=== PATIENT | female | born 1945 | race Caucasian/White ===

== ENCOUNTER → 2023-06-01 09:22 | Outpatient (CLI) | payer OTHER, SELFPAY ==
--- NOTE | ~2023-06-01 | XR_ITS ---
EXAMINATION: XR lumbar spine 2-3V DATE: 06/01/2023 09:47 INDICATION: Lumbago sciatica, left-sided. TECHNIQUE: 3 views of lumbar spine were obtained. COMPARISON: None. FINDINGS: There is 3 mm anterolisthesis of L4 on L5. Vertebral body heights are normal. There is adrián rely decreased disc height from L1-L2 through L3-L4 and mildly decreased disc height at L5-S1. There is multilevel facet joint osteoarthritis, severe in lower lumbar spine. IMPRESSION: 1. Severe lumbar spondylosis. Reviewed, dictated and finalized at location A.
== END ==
PROVIDERS: PCP Family Medicine Adolescent Medicine; Visit Provider Nurse Practitioner Family
DX: M54.42 Lumbago with sciatica, left side (principal); M47.896 Other spondylosis, lumbar region
CPT/HCPCS: 72100

== ENCOUNTER → 2023-06-23 09:20 | Outpatient (CLI) | payer OTHER, SELFPAY ==
--- NOTE | ~2023-06-23 | XR_ITS ---
EXAM: XR_CERV2-3V_CR DATE: 06/23/2023 10:03 HISTORY: R20.0 - Anesthesia of skin . COMPARISON: None available. FINDINGS: Craniocervical association and atlantoaxial joint are aligned. No prevertebral soft tissue swelling. 3 mm anterolisthesis at C2-3. 3 mm anterolisthesis at C4-5. 2 mm retrolisthesis at C5-6. 1 mm retrolisthesis at C6-7. Vertebral body heights are maintained. Multilevel moderate disc space bulmaro rowing and marginal osteophytosis in the lower cervical spine. Multilevel moderate facet sclerosis an d hypertrophy. IMPRESSION: Multilevel grade 1 listheses. Multilevel moderate degenerative disc disease and facet art hropathy. Reviewed, dictated and finalized at location K. IMPRESSION: Multilevel grade 1 listheses. Multilevel moderate degenerative disc disease and facet arthropathy.
== END ==
PROVIDERS: PCP Family Medicine Adolescent Medicine; Visit Provider Nurse Practitioner Family
DX: R20.0 Anesthesia of skin (principal); M50.30 Other cervical disc degeneration, unspecified cervical region
CPT/HCPCS: 72040

== ENCOUNTER → 2023-07-02 14:26 | Outpatient (CLI) | payer OTHER, SELFPAY ==
--- NOTE | ~2023-07-02 | MR_ITS ---
EXAMINATION: MR cervical spine wo con DATE: 07/02/2023 15:06 INDICATION: Cervical disc degeneration, unspecified. Neck stiffness. Bilateral arm numbness and tingl ing. TECHNIQUE: Magnetic resonance imaging (MRI) of the cervical spine was performed without intravenous c ontrast. Sequences included sagittal T2-weighted FSE, sagittal T2-weighted FS FSE, sagittal T1-weight ed FSE, axial MERGE, and axial T2-weighted FSE. COMPARISON: Cervical spine radiographs 06/23/2023 FINDINGS: There is 10 degrees dextroscoliosis of cervicothoracic spine. There is 2 mm anterolisthesis of C4 on C5 and 2 mm retrolisthesis of C5 on C6. Vertebral body heights are normal. There is mildly decreased disc height at C3-C4 and C4-C5 and severely decreased disc height at C5-C6 and C6-C7. The s ubaldo cord signal intensity is normal. The following disc levels are specifically discussed: C2-C3: There is a central extrusion. There is no uncovertebral joint osteoarthritis. There is severe right and moderate left facet joint osteoarthritis. There is mild bilateral neural foraminal stenosis . There is mild central canal stenosis. C3-C4: There is a central extrusion. There is mild left uncovertebral joint osteoarthritis. There is severe left facet joint osteoarthritis. There is mild left neural foraminal stenosis. There is mild c entral canal stenosis. C4-C5: The disc does not extend beyond the endplate margin. There is mild right insula uncovertebral joint osteoarthritis. There is severe bilateral facet joint osteoarthritis. There is moderate left ne ural foraminal stenosis. There is mild central canal stenosis with ventral indentation of the spinal cord. C5-C6: The disc is bulging. There is severe bilateral uncovertebral joint osteoarthritis. There is mi ld left facet joint osteoarthritis. There is moderate right and severe left neural foraminal stenosis . There is moderate central canal stenosis with ventral and dorsal indentation of the spinal cord. C6-C7: The disc is bulging. There is severe bilateral uncovertebral joint osteoarthritis. There is se ledy right and moderate left facet joint osteoarthritis. There is moderate right and severe left neur al foraminal stenosis. There is mild central canal stenosis. C7-T1: The disc does not extend beyond the endplate margin. There is no uncovertebral joint osteoarth ritis. There is mild right and moderate left facet joint osteoarthritis. There is mild left neural fo raminal stenosis. There is no central canal stenosis. IMPRESSION: 1. Severe cervical spondylosis. Reviewed, dictated and finalized at location E.
== END ==
PROVIDERS: Visit Provider Nurse Practitioner Family
DX: M50.30 Other cervical disc degeneration, unspecified cervical region (principal); R20.0 Anesthesia of skin; R20.2 Paresthesia of skin; M47.892 Other spondylosis, cervical region
CPT/HCPCS: 72141

== ENCOUNTER 2023-09-05 13:25 | Emergency (ER) | payer OTHER, SELFPAY ==
--- NOTE | ~2023-09-05 | XR_ITS ---
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 Comparison: None. RESULT: Lines, tubes, and devices: None. Lungs and pleura: Senescent change. 1.7 cm left suprahilar opacity. Minimal streaky bibasilar opacit y/scar Cardiomediastinal silhouette: Unremarkable. Other: No acute osseous or upper abdominal finding. IMPRESSION: No acute cardiopulmonary process. 1.7 cm left suprahilar opacity, recommend comparison to outside studies if available. Otherwise, aramis mmend nonemergent but timely low-dose noncontrast CT of the chest for further characterization. Reviewed, dictated and finalized at location K. CANDLE MOLDER IMPRESSION: No acute cardiopulmonary process. 1.7 cm left suprahilar opacity, recommend comparison to outside studies if avai lable. Otherwise, recommend nonemergent but timely low-dose noncontrast CT of t he chest for further characterization.
--- NOTE | ~2023-09-05 | CT_ITS ---
EXAMINATION: CT brain wo con DATE: 09/05/2023 13:42 INDICATION: Expressive aphasia. TECHNIQUE: Computed tomography (CT) of the head was performed without intravenous contrast. The mA wa s adjusted according to patient size. Iterative reconstruction technique was employed. The dose-lengt h product was 605.33 mGy-cm. COMPARISON: None FINDINGS: There is no intracranial hemorrhage, acute infarction, or abnormal intracranial mass lesion . The ventricles are normal in size. The paranasal sinuses are clear. The mastoid air cells are po l. There are likely changes of ocular lens replacement surgeries. IMPRESSION: 1. Normal brain. Reviewed, dictated and finalized at location A. READY WORKER IMPRESSION: 1. Normal brain.
--- NOTE | 2023-09-05 13:29 | ECG_ITS ---
Measurements Intervals [place] Rate: 83 P: 1 KS: 167 QRS: -12 QRSD: 100 T: 0 QT: 361 QTc: 426 Interpretive Statements SINUS RHYTHM DELAYED PRECORDIAL R/S TRANSITION VOLTAGE CRITERIA FOR LVH BORDERLINE T WAVE ABNORMALITY- INFERIOR LEADS BASELINE ARTIFACT- I, III, AVR, AVL, V4-V5 BORDERLINE ECG NO PREVIOUS ECG AVAILABLE FOR COMPARISON Electronically Signed On 09-05-2023 14:32:39 LAB SUPPORT TECH by Sameer Fan D.O.
--- NOTE | 2023-09-05 13:45 | ED.NEUROSD ---
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 HEAD: Normocephalic, atraumatic. EYES: PERRLA and EOMI. ENT: Nares clear, no rhinorrhea or epistaxis. Mucous membranes moist. NECK: Supple. CHEST: Clear to auscultation. No respiratory distress. HEART: Regular rate and rhythm. No murmur heard. Normal peripheral pulses. ABDOMEN: Soft, nontender, nondistended, normal active bowel sounds. EXTREMITIES: Normal range of motion. No edema. SKIN: Warm, dry, no rash. NEURO: Alert and keenly responsive, answering questions following commands. Visual jackman intact. Normal symmetry of face. No upper extremity or lower extremity motor drift. No limb ataxia on [id number] testing. Sensation intact, including across distribution of face x3. Normal language, no expressive or receptive aphasia. No dysarthria. PSYCH: Normal mood and affect. Course Consultations Consultation #1: Radiologist. Discussed initial CT brain. Reported as normal Date: 09/05/23 Time: 13:45 Vital Signs Vital signs: Vital Signs Temperature 98.7 F 09/05/23 14:00 Pulse Rate 88 09/05/23 14:00 Respiratory Rate 16 09/05/23 14:00 Blood Pressure 170/77 H 09/05/23 14:00 Pulse Oximetry 99 09/05/23 14:00 Oxygen Delivery Room Air 09/05/23 14:00 Temperature 98.7 F 09/05/23 14:00 Pulse Rate 88 09/05/23 14:00 Respiratory Rate 16 09/05/23 14:00 Blood Pressure 170/77 H 09/05/23 14:00 Pulse Oximetry 99 09/05/23 14:00 Oxygen Delivery Room Air 09/05/23 14:00 MDM - Neuro Symptoms/Deficit MDM Narrative Medical decision making narrative: This is a [x year old gender] who presents to the emergency department with concern for possible stroke. Last known well is [ ]. The patient is protecting her airway which is patent. An 80 be established by nursing staff blood work sent to the lab for evaluation. An EKG will be performed. Accu-Chek was 245. NIHSS was evaluated per below. The patient was transported immediately to CT scan per stone protocol for evaluation of acute intracranial bleed. NIHSS Level Of consciousness: 0 Month and age: Follows commands: 0 Gaze palsy: 0 Visual jackman: 0 Facial palsy: 0 Left arm motor drift: 0 Right arm motor drift: 0 Left leg motor drift: 0 Right leg motor drift: 0 Limb ataxia: 0 Sensation: 0 Aphasia: 0 Dysarthria: 0 Extinction: Total: CT per stroke protocol shows: Patient has comorbidities that complexity management. Namely, Chart review performed which demonstrates: Social determinants of health that affect care include: Management is discussed with [physicians, social work, pharmacists, etc.]: Shared decision making with patent Labs including troponin [Improving neuro exam more consistent with TIA (cerebral thrombus/embolus without infarct)] [ ABCD ] Patient is be NPO until bedside swallow evaluation can be performed. Patient will require admission with workup to possibly include echo, carotid Doppler/duplex and cardiac monitoring. Goal is to maintain normotension/permissive hypertension as well as euglycemia. Lab Data 09/05/23 13:45 09/05/23 13:45 Labs: Lab Results 09/05/23 09/05/23 09/05/23 Range/Units 13:33 13:45 14:19 WBC 10.7 H (4.5-10.0) K/mm3 RBC 4.30 (4.2-5.4) M/mm3 Hgb 12.3 (12.0-15.0) g/dL Hct 37.5 (37.0-47.0) % MCV 87.2 (80-100) fl MCH 28.6 (26-34) pg MCH
[2023-09-05 13:52] LABS: Basophils Absolute Auto 0.1 K/mm3 (0.0-0.1); Basophils Percent Auto 0.7 % (0.2-1.2); Eosinophils Absolute Auto 0.2 K/mm3 (0-0.3); Eosinophils Percent Auto 1.4 % (0-4.4); Hematocrit 37.5 % (37.0-47.0); Hemoglobin 12.3 g/dL (12.0-15.0); Immature Granulocyte Absolute 0.03 K/mm3 (0.00-0.031); Immature Granulocyte Percent A 0.3 % (0-0.5); Lymphocytes Absolute Auto 1.76 K/mm3 (0.9-3.2); Lymphocytes Percent Auto 16.5 % (18.3-44.2); Mean Corpuscular HGB Conc 32.8 g/dl (32-36); Mean Corpuscular Hemoglobin 28.6 pg (26-34); Mean Corpuscular Volume 87.2 fl (80-100); Mean Platelet Volume 10.6 fl (7.4-10.4); Monocytes Absolute Auto 0.6 K/mm3 (0.1-0.6); Monocytes Percent Auto 5.8 % (2.6-8.5); Neutrophils Absolute Auto 8.1 K/mm3 (1.3-6.7); Neutrophils Percent Auto 75.3 % (45.5-73.1); Platelet Count Result 239 k/mm3 (150-375); Red Cell Distribution Width 12.9 % (11.5-14.5); White Blood Count 10.7 K/mm3 (4.5-10.0)
[2023-09-05 14:00] VITALS: BP 166/75; BP 170/77; PULSE 80; PULSE 88; RESP 16; TEMP 37.1; O2SAT 98; O2SAT 99
[2023-09-05 14:02] LABS: INR 1.1; Partial Thromboplastin Time 29.8 SECONDS (22.3-36.8); Prothrombin Time 14.8 Seconds (11.1-14.7)
[2023-09-05 14:03] LABS: Alanine Aminotransferase 32 U/L (6-35); Albumin Level 3.7 g/dL (3.5-5.1); Alkaline Phosphatase 113 U/L (38-126); Anion Gap 11 mmol/L (8-16); Aspartate Amino Transferase 45 U/L (14-36); Bilirubin,Total 0.4 mg/dL (0.2-1.3); Blood Urea Nitrogen 25 mg/dL (7-17); Carbon Dioxide 23 mmol/L (22-30); Chloride 105 mmol/L (98-107); Estimated Glomerular Filt Rate 54; Glucose 228 mg/dL (65-110); Sodium 139 mmol/L (137-145)
[2023-09-05 14:09] LABS: Glucose Point of Care 245 mg/dl (65-105)
[2023-09-05 14:14] LABS: Troponin I < 0.012 ng/mL (0.000-0.034)
[2023-09-05 14:31] VITALS: BP 151/60; PULSE 85; RESP 27; O2SAT 98
[2023-09-05 14:36] LABS: Appearance Urine Turbid (Clear); Bacteria Urine 4+ /hpf; Bilirubin Urine Negative (Negative); Blood Urine 3+ (Negative); Color Urine Dark Yellow (Yellow); Glucose Urine UA 2+ mg/dL (Negative); Ketones Urine Negative (Negative); Leukocyte Esterase Ur 3+ LEU/UL (Negative); Need Manual Microscopic Reviewed; Nitrate Urine Negative (Negative); Non Pathogenic Casts 0-2; Protein Urine 3+ mg/dL (Negative); RBC Urine >100 /hpf (0-2); Specific Grav Ur 1.023 (1.001-1.035); Squamous Epithelial Cell Urine None seen /hpf (Few); WBC Urine >100 /hpf
[2023-09-05 14:38] LABS: Add Urine Microscopic? YES
[2023-09-05 15:01] VITALS: BP 148/66; PULSE 76; RESP 11; O2SAT 97
[2023-09-05 16:00] VITALS: BP 146/60; PULSE 85; RESP 16; O2SAT 99
[2023-09-05 16:25] VITALS: BP 166/75; PULSE 80; RESP 16; O2SAT 98
== END 2023-09-05 16:30 | disposition home or self-care (01) ==
PROVIDERS: Emergency Provider Student in an Organized Health Care Education/Training Program; PCP Family Medicine Adolescent Medicine
DX: N39.0 Urinary tract infection, site not specified (principal); N81.10 Cystocele, unspecified; Z79.01 Long term (current) use of anticoagulants; Z79.84 Long term (current) use of oral hypoglycemic drugs
CPT/HCPCS: 36415; 70450; 71045; 80053; 81001; 82948; 84484; 85025; 85610; 85730; 87077; 87086; 87186; 93005; 96365; 99284; J0696

== ENCOUNTER 2023-12-22 15:29 | Outpatient (CLI) | payer OTHER, SELFPAY ==
--- NOTE | ~2023-12-22 | XR_ITS ---
EXAMINATION: XR knee RT 3V DATE: 12/22/2023 15:54 INDICATION: Right knee pain. TECHNIQUE: 4 views of right knee were obtained. COMPARISON: None. FINDINGS: Bone alignment is normal. No fracture. There is mild osteoarthritis of medial compartment, moderate osteoarthritis of lateral compartment, and severe osteoarthritis of patellofemoral compartme nt. There is a small knee joint effusion. IMPRESSION: 1. Severe right knee osteoarthritis. 2. Small right knee joint effusion. Reviewed, dictated and finalized at location E. ET DIRECTOR
== END 2023-12-22 15:30 | disposition home or self-care (01) ==
LOC: ANHIMG 15:30
PROVIDERS: PCP Family Medicine Adolescent Medicine; Visit Provider Family Medicine Adolescent Medicine
DX: M17.11 Unilateral primary osteoarthritis, right knee (principal); M25.461 Effusion, right knee
CPT/HCPCS: 73562

== ENCOUNTER 2025-03-08 05:24 | Emergency (ER) | payer OTHER, SELFPAY ==
--- NOTE | ~2025-03-08 | CT_ITS ---
EXAMINATION: CT hip LT wo con DATE: 03/08/2025 07:51 INDICATION: Left hip pain TECHNIQUE: High resolution computed tomography (CT) of the left hip was performed without intravenous contrast. Additional sagittal and coronal reconstructions were performed. Automated exposure control and iterative reconstruction technique were employed. The dose-length product was 460.26 mGy-cm. COMPARISON: Radiographs dated 03/08/2025 FINDINGS: Bone alignment is normal. No fracture. Moderate osteoarthritis at the left hip with no joint effusion . There are some stranding extending caudally along the left iliopsoas muscle tendon which appears th ickened distally suggesting possible muscle strain. There are few diverticula along the visualized si gmoid colon without adjacent from trace stranding to suggest diverticular colitis. Calcified uterine fibroid. There is pelvic floor relaxation with the bladder, vaginal vault and distal most rectum exte nding below the level of the distal coccygeal line. No pathologically enlarged pelvic or left inguina l lymphadenopathy. No free fluid in the pelvis. IMPRESSION: 1. Inflammatory stranding extending along the distal left iliopsoas muscle and tendon which appears t hickened distally suggesting possible muscle strain. Line 2. Moderate left hip osteoarthritis without joint effusion or acute osseous abnormality. 3. Pelvic floor relaxation. 4. Calcified uterine fibroid. Reviewed, dictated and finalized at location A. IMPRESSION: 1. Inflammatory stranding extending along the distal left iliopsoas muscle and tendon which appears thickened distally suggesting possible muscle strain. Line 2. Moderate left hip osteoarthritis without joint effusion or acute osseous abn ormality. 3. Pelvic floor relaxation. 4. Calcified uterine fibroid.
--- NOTE | ~2025-03-08 | XR_ITS ---
AP view of the pelvis and AP and lateral views of the left hip Clinical history: Pain Findings: No acute fracture or dislocation is seen. There is severe degenerative change of the right hip joint with euqu-ws-dzyp appearance, reactive sclerosis, and mild remodeling of the femoral head. There is mild to moderate degenerative change of the left hip joint. There is a 1.8 cm calcified stru cture in the midline just above the pubic symphysis, which could possibly represent fibroid or urinar y bladder stone. Soft tissues are otherwise unremarkable. Impression: No acute fracture or dislocation. Severe right hip joint osteoarthritis, and mild to moderate left hip joint osteoarthritis. 1.8 cm calcified fibroid versus bladder stone in the midline just above the pubic symphysis. Reviewed, dictated and finalized at [facility]. Impression: No acute fracture or dislocation. Severe right hip joint osteoarthritis, and mild to moderate left hip joint oste oarthritis. 1.8 cm calcified fibroid versus bladder stone in the midline just above the pub ic symphysis.
--- OUTSIDE RECORDS SUMMARY | 2025-03-08 05:26 | XMS_ITS | Referral Summary ---
Author Organization [place] [id number] [facility] Address [facility] [place] [address] Care Team Providers Care Admissions Supervisor Name Role Phone Avi Neves MD Primary Care Prov ider Allergies Active Allergy Reactions Criticality Noted Date Comments Metformin Diarrhea Low 10/27/2023 Semaglutide Headache Low 10/27/2023 Sore throat Medications glimepiride (AMARYL) 2 mg tabletIndicatio ns:type 2 diabetes mellitus Take 1 tablet (2 mg total) by mouth daily before breakfast 3 Active Contour Next EZ Meter misc USE TO TEST BLOOD SUGAR TWICE DAILY 3 Active Contour Next Test Strips strip USE TO TEST TWICE DAILY 3 Active Microlet Lancet misc USE TO TEST TWICE DAILY 3 Active Tradjenta 5 mg tabletIndicatio ns:type 2 diabetes mellitus Take 1 tablet (5 mg total) by mouth every morning 4 Active qx-qel-Q-glutam xj-ljeozn-kj780 1,000-50 mg tablet, effervescentInd ications:Supple ment Take 1 tablet by mouth nightly Active ntdnwkeg-jwq-bs ondroit-vit D3 750 mg-125 mg -600 mg tabletIndicatio ns:Supplement Take 1 tablet by mouth nightly Active biotin 10 mg tabletIndicatio ns:Supplement Take 1 tablet (10 mg total) by mouth nightly Active ascorbate calcium, vitamin C, 500 mg tabletIndicatio ns:Supplement Take 1 tablet by mouth nightly Active baclofen (LIORESAL) 5 mg tablet Take 0.5 tablets (2.5 mg total) by mouth 2 (two) times a day as needed for muscle spasms (2nd line for muscle relaxer, give 3 hours apart from methocarbamol) 0 4 Active atorvastatin (LIPITOR) 80 mg tablet Take 1 tablet (80 mg total) by mouth nightly 0 4 Active bisacodyL (DULCOLAX) 10 mg suppositoryIndi cations:constip ation Insert 1 suppository (10 mg total) into the rectum daily If unrelieved by miralax 4 Active polyethylene glycol (MIRALAX) 17 gram packetIndicatio ns:constipation Take 1 packet (17 g total) by mouth daily as needed for constipation (1st line) 0 4 Active senna-docusate (PERICOLACE) 8.6-50 mgIndications:c onstipation Take 1 tablet by mouth 2 (two) times a day 0 4 Active Eliquis 5 mg tabletIndicatio ns:Venous Thrombosis Take 1 tablet (5 mg total) by mouth 2 (two) times a day STOP 11/13/23 0 4 Active lidocaine (LIDODERM) 5 %Indications:Pa in Place 1 patch on the skin daily Use patch for 12 hours on, 12 hours off. Discard after each use 7 patch 4 Active amLODIPine (NORVASC) 10 mg tablet 4 Active amoxicillin-cla vulanate (AUGMENTIN) 875-125 mg per tablet TAKE 1 TABLET ORALLY TWICE A DAY FOR 7 DAYS 4 Active celecoxib (CeleBREX) 200 mg capsule Take by mouth daily 4 Active hydrALAZINE (APRESOLINE) 25 mg tablet 4 Active lisinopriL (PRINIVIL,ZESTR IL) 20 mg tablet Take 1 tablet (20 mg total) by mouth daily 4 Active metoprolol tartrate (LOPRESSOR) 25 mg immediate release tablet [address] (PROTONIX) 40 mg EC tablet Take 1 tablet (40 mg total) by mouth every morning 4 Active traZODone (DESYREL) 50 mg tablet Active aspirin 81 mg enteric coated tablet Take 1 tablet (81 mg total) by mouth daily 30 tablet 11 4 08/16/20 Active Active Problems Problem Noted Date Diagnosed Date Cervical stenosis of spine 11/18/2023 Presence of IVC filter 11/18/2023 Cervical myelopathy with cervical radiculopathy 11/11/2023 Type 2 diabetes mellitus 11/11/2023 Chronic deep vein thrombosis (DVT) of femoral vein of right lower extremity 11/11/2023 Cervical spondylosis with myelopathy 08/27/2023 Immunizations Immunization Administration Dates Next Due Influenza, Quad, Adjuvantated, Intramuscular Social History Tobacco Use Types Packs/Day Years Used Date Smoking Tobacco: Never Smokeless Tobacco: Never Tobacco Cessation:Counseling Given: No [facility] Utilities Answer Date Recorded In the past 12 months has th e [employer], gas, oil, or water company threatened to shut off services in your home? No 11/19/2023 Social Connection and Isolat ion Panel [NHANES] Answer Date Recorded In a typical week, how many times do you talk on the phone with family, friends, or neighbors? More than three times a week 11/19/2023 How often do you get togethe r with friends or relatives? More than three times a week 11/19/2023 How often do you attend [facility] or lutheran services? More than 4 times per year 11/19/2023 Do you belong to any clubs o r organizations such as muslim groups, unions, fraternal or athletic groups, or school groups? No 11/19/2023 How often do you attend meet ings of the clubs or organizations you belong to? Never 11/19/2023 Are you , , di vorced, , never , or living with a partner? 11/19/2023 AUDIT-C Answer Date Recorded Q1: How often do you have a drink containing alcohol? Never 11/18/2023 Q2: How many drinks containi ng alcohol do you have on a typical day when you are drinking? Patient does not drink Q3: How often do you have si x or more drinks on one occasion? Never 11/18/2023 Overall Financial Resource Strain (CARDIA) Answe r Date Recorded How hard is it for you to pa y for the very basics like food, housing, medical care, and heating? Not very hard 11/19/2023 Hunger Vital Sign Answer Date Recorded Within the past 12 months, y ou worried that your food would run out before you got the money to buy more. Never true 11/19/19 24 Within the past 12 months, t he food you bought just didn't last and you didn't have money to get more. Never true 11/19/2023 PRAPARE - Transportation Answer Date Re corded In the past 12 months, has l ack of transportation kept you from medical appointments or from getting medications? No 11/2023 In the past 12 months, has l ack of transportation kept you from meetings, work, or from getting things needed for daily living? No 11/19/2023 Housing Stability Vital Sign Answer Sriram e Recorded In the last 12 months, was t here a time when you were not able to pay the mortgage or rent on time? No 11/19/2023 In the last 12 months, how many places have you lived? 1 11/19/2023 In the last 12 months, was t here a time when you did not have a steady place to sleep or slept in a [facility] (including now)? No 11/19/2023 Personal Safety Answer Date Recorded Have you ever been in or are you currently in a harmful physical or emotional relationship or is someone making you feel afraid or unsafe? Denies 12/17/2023 Comments No Sex and Gender Information Value Date Recorded Sex Assigned at Not on file Legal Sex Female 7:33 AM CDT Gender Identity Not on file Sexual Orientation Not on file Last Filed Vital Signs Vital Sign Reading Time Taken Comments Blood Pressure 168/76 08/16/2024 10:41 AM CDT Pulse 78 08/16/2024 10:41 AM CDT Temperature 36.4 C (97.6 F) 12/17/2023 7:04 PM OFFSET PLATEMAKER Respiratory Rate 28 12/17/2023 11:30 PM OFFSET PLATEMAKER Oxygen Saturation 100% 12/17/2023 11:30 PM OFFSET PLATEMAKER Inhaled Oxygen Concentration - - Weight 85.3 kg (188 lb) 08/16/2024 10:41 AM CDT Height 162.6 cm (5' 4 ) 08/16/2024 10:41 AM CDT Body Mass Index 32.27 08/16/2024 10:41 AM CDT Plan of Treatment Not on file Medical Devices Implanted Type Area Construction Site Manager Device Identifier Shelf Expiration Date Model / Serial / Lot Bard Peripheral Vascular [place] Jugular Venal Cava Filter [id number] - [id number] Implanted:Qty: 1 on 11/12/2023 at [facility] [employer] 09/16/2026 [id number] / / [id number] Allosource Canpac Nonpurge Frozen Graft 25cc Bone [id number] - [id number] Implanted:Qty: 1 on 11/18/2023 by Doron Valdivia MD at [facility] N/A: Spine Cervical Allosource 09/02/2028 [id number] / / [id number] Depuy Synthes Spine Screw Spinal Posterior Cervical Polyaxial Solid Symphony 3.5x14mm [id number] - [id number] Implanted:Qty: 1 on 11/18/2023 by Doron Valdivia MD at [facility] N/A: Spine Cervical Depuy Synthes Spine [id number] / / Depuy Synthes Spine Screw Spinal Set Posterior Cervical Solid Symphony Titanium [id number] - [id number] Implanted:Qty: 8 on 11/18/2023 by Doron Valdivia MD at [facility] N/A: Spine Cervical Depuy Synthes Spine [id number] / / Depuy Synthes Spine Chay Spinal Pre Lordotic Pre Cut Symphony 4.0x60mm Titanium [id number] - [id number] Implanted:Qty: 2 on 11/18/2023 by Doron Valdivia MD at [facility] N/A: Spine Cervical Depuy Synthes Spine [id number] / / Depuy Synthes Spine Screw Spinal Posterior Cervical Polyaxial Solid Symphony 3.5x16mm [id number] - [id number] Implanted:Qty: 5 on 11/18/2023 by Doron Valdivia MD at [facility] N/A: Spine Cervical Depuy Synthes Spine [id number] / / Depuy Spine Screw Bone 4.0 Cannulated Red Cfx 5.5x28mm [id number] - [id number] Implanted:Qty: 2 on 11/18/2023 by Doron Valdivia MD at [facility] N/A: Spine Cervical Depuy Spine [id number] / / Procedures Procedure Name Priority Date/Time Associated Diagnosis Comments EGFR Routine 11/24/2023 11:12 PM OFFSET PLATEMAKER LIPID PANEL STAT 11/18/2023 6:39 PM OFFSET PLATEMAKER POCT HEMOGLOBIN A1C Routine 10/27/2023 4 :53 PM OFFSET PLATEMAKER from Last 3 Months or Most Recently Relevant to Health Maintenance Results * eGFR (11/24/2023 11:12 PM OFFSET PLATEMAKER) eGFR >90 >=60 mL/min/1. 73 m2 [facility] Comment: Interpretive Data Reference Interval Normal >/= 90 mL/min/1.73m2 Mildly decreased* 60 - 89 mL/min/1.73m2 Mildly to moderately decreased 45 - 59 mL/min/1.73m2 Moderately to severely decreased 30 - 44 mL/min/1.73m2 Severely decreased 15 - 29 mL/min/1.73m2 Kidney Failure < 15 mL/min/1.73m2 *Relative to young adult level Estimated glomerular filtration rate is determined by the 2020 CKD-EPI equation recommended by the National Kidney Foundation (A Unifying Approach to GFR Estimation: Recommendations of the NKF-ASK Task Force on Reassessing the Inclusion of Race in Diagnosing Kidney Disease, JASN 202). The CKD-EPI equation should not be used for patients with unstable renal function and has not been validated in children and those over 70. Current interpretive data was last reviewed 2021. Blood 11/24/2023 11:1 2 PM OFFSET PLATEMAKER 11/25/2023 1:18 AM OFFSET PLATEMAKER us Alphonse Butler NP LAB BLOOD ORDERABLES Fi nal Result [facility] Department [place] [address] * (ABNORMAL) Lipid panel (11/18/2023 6:39 PM OFFSET PLATEMAKER) Cholesterol 222(H) 30 - 199 mg/dL [facility] Comment: Interpretive Data Ages < or = 19 years Acceptable: <170 mg/dL Borderline high: 170-199 mg/dL High: >or= 200 mg/dL Ages > or = 20 years Desirable: <200 mg/dL Borderline high: 200-239 mg/dL High: >or= 240 mg/dL Literature References: 1. Expert Panel on Integrated Guidelines for Cardiovascular Health and Risk Reduction in Children and Adolescents. Pediatrics 2011;128:S213 2. NCEP Expert Panel. Circulation 2004;110:227 Current Interpretive Data was last revised on 2018. Triglycerides 208(H) <=149 mg/dL [facility] Comment: Interpretive Data Ages < or = 9 years Acceptable: <75 mg/dL Borderline high: 75-99 mg/dL High: >or= 100 mg/dL Ages 10 to 20 years Acceptable: <90 mg/dL Borderline high: 90-129 mg/dL High: >or= 130 mg/dL Ages > or = 20 years Desirable: <150 mg/dL Borderline high: 150-199 mg/dL High: 200-499 mg/dL Very high: >or= 499 mg/dL Literature References: 1. Expert Panel on Integrated Guidelines for Cardiovascular Health and Risk Reduction in Children and Adolescents. Pediatrics 2011;128:S213 2. NCEP Expert Panel. Circulation 2004;110:227 Current Interpretive Data was last revised on 2018. HDL 40 >=40 mg/dL [facility] Comment: Interpretive Data Ages < or = 19 years Acceptable: >45 mg/dL Borderline low: 40-45 mg/dL Low: <40 mg/dL Ages > or = 20 years Desirable: >or= 60 mg/dL Low: <40 mg/dL Literature References: 1. Expert Panel on Integrated Guidelines for Cardiovascular Health and Risk Reduction in Children and Adolescents. Pediatrics 2011;128:S213 2. NCEP Expert Panel. Circulation 2004;110:227 Current Interpretive Data was last revised on 2018. LDL, calculated 140(H) <=129 mg/dL [facility] Comment: Interpretive Data Ages < or = 19 years Acceptable: <110 mg/dL Borderline high: 110-129 mg/dL High: >or= 130 mg/dL Ages > or = 20 years Optimal: <100 mg/dL Near optimal: 100-129 mg/dL Borderline high: 130-159 mg/dL High: >160 mg/dL Literature References: 1. Expert Panel on Integrated Guidelines for Cardiovascular Health and Risk Reduction in Children and Adolescents. Pediatrics 2011;128:S213 2. NCEP Expert Panel. Circulation 2004;110:227 Current Interpretive Data was last revised on 2018. Non-HDL Cholesterol 182 mg/dL [facility] Comment: Interpretive Data Ages < or = 19 years Acceptable: <120 mg/dL Borderline high: 120-144 mg/dL High: >145 mg/dL Ages > or = 20 years When triglycerides are >200 mg/dL, Non-HDL cholesterol is a secondary target of therapy with treatment goals that are 30 mg/dL greater than the LDL cholesterol target. Literature References: 1. Expert Panel on Integrated Guidelines for Cardiovascular Health and Risk Reduction in Children and Adolescents. Pediatrics 2011;128:S213 2. NCEP Expert Panel. Circulation 2004;110:227 Current Interpretive Data was last revised on 2018. Chol/HDL ratio 6 [facility] Blood 11/18/2023 6:39 PM OFFSET PLATEMAKER 11/18/2023 6:53 PM OFFSET PLATEMAKER Narrative [facility] - 11/19/2023 12:00 AM OFFSET PLATEMAKER Reflex Doron Valdivia MD LAB BLOOD ORDERABLES Final Result [facility] [place] [address] * (ABNORMAL) POCT hemoglobin A1c (10/27/2023 4:53 PM OFFSET PLATEMAKER) Hgb A1C, POC 7.1(H) 4.0 - 5.6 % [facility] Est Average Gluc POC 157 mg/dL [facility] Comment: The ADA recommends reporting an estimated Average Glucose (eAG) with all Hemoglobin A1c results using the equation derived from a study of 507 normal and diabetic adults. Minority populations were underrepresented and children were not included. (Diabetes Care 31:1038-5775, 2008). The eAG is not equivalent to a fasting glucose. Blood 10/27/2023 4:53 PM OFFSET PLATEMAKER 10/27/2023 4:53 PM OFFSET PLATEMAKER us Doron Valdivia MD POINT OF CARE TEST ORDERAB LES Final Result [facility] [place] [address] from Last 3 Months or Most Recently Relevant to Health Maintenance Insurance [facility] Advance Directives For more information, please contact: [phone] Documents on File Type Date Recorded Patient Program Mgr Expl anation ADVANCE DIRECTIVE 11/18/2023 11:28 AM Power of [employer] [facility] * Full Code (Latest Code Status on File) Date Activated Date Inactivated Comments 11/18/2023 8:07 PM 11/25/2023 10:42 PM * Full Code Date Activated Date Inactivated Comments 11/11/2023 3:44 PM 11/12/2023 3:56 PM Care Teams Admissions Supervisor Relationship Specialty Start Date End Date Avi Neves MD [address] [place] [address] PCP - General Family Medicine 10/20/23
--- OUTSIDE RECORDS SUMMARY | 2025-03-08 05:26 | XMS_ITS | Clinical Summary ---
Author Organization [place] [id number] [facility] Address [facility] [place] [address] Care Team Providers Care Business Office Representative Name Role Phone Avi Neves MD Primary [...] total) by mouth every morning 4 Active cg-okw-L-glutam oi-hlxmme-ek225 1,000-50 mg tablet, effervescentInd ications:Supple ment Take 1 tablet by mouth nightly Active uwpalril-oma-ys ondroit-vit D3 750 mg-125 mg -600 mg [...] Dates Next Due Influenza, Quad, Adjuvantated, Intramuscular Surgical History Surgery Date Site/Laterality Comments CATARACT EXTRACTION Bilateral INSERT VENA CAVA FILTER 11/12/2023 N/A CERVICAL LAMINECTOMY 11/18/2023 C4-T1 POSTERIOR FUSION CERVICAL SPINE 11/18/2023 C4-T1 Medical History Medical History Date Comments Diabetes mellitus (HCC) DVT (deep venous thrombosis) (HCC) Arthritis Social History Tobacco Use Types Packs/Day Years Used Date Smoking Tobacco: Never Smokeless Tobacco: Never Tobacco Cessation:Counseling Given: No [facility] Utilities Answer Date Recorded In the past 12 months has [employer], gas, oil, or water [employer] threatened to shut off services in your [...] week 11/19/2023 How often do you attend [facility] or temple services? More than 4 times per year 11/19/2023 Do you belong to any clubs o r organizations such as jew groups, unions, fraternal or athletic groups, or [...] place to sleep or slept in a snf (including now)? No 11/19/2023 Personal Safety Answer [...] on file Sexual Orientation Not on file Obstetrics History Last Filed Vital Signs Vital Sign Reading Time Taken Comments Blood Pressure 168/76 08/16/2024 10:41 AM CDT Pulse 78 08/16/2024 10:41 AM CDT Temperature 36.4 C (97.6 F) 12/17/2023 7:04 PM COUNTY ADMINISTRATOR Respiratory Rate 28 12/17/2023 11:30 PM COUNTY ADMINISTRATOR Oxygen Saturation 100% 12/17/2023 11:30 PM COUNTY ADMINISTRATOR Inhaled Oxygen Concentration - - Weight 85.3 kg (188 lb) 08/16/2024 10:41 AM CDT Height 162.6 cm (5' 4 ) 08/16/2024 10:41 AM CDT Body Mass Index 32.27 08/16/2024 10:41 AM CDT Plan of Treatment Health Maintenance Due Date Last Done Comments Albumin Creatinine Ratio, Urine 1945 Depression Screening 1945 Hepatitis C Screening 1945 Osteoporosis Screening-Bone Density Scan 1945 Dilated Eye Exam 1947 Foot Exam 1945 DTaP/Tdap/Td Vaccine (1 - Tdap) 1958 Hepatitis B Screening 1965 Pneumococcal vaccine 65+ (1 of 2 - PCV) 1966 Zoster Vaccine (1 of 2) 1997 Well Visit 65+ 2012 Hemoglobin A1C 04/26/2024 10/27/2023, 10/27/2023 Covid-19 Vaccine ( - 2023-2 5 season) 2024 08/12/2022, 10/31/2021, 05/01/2021, Additional history exists Influenza Vaccine (#1) 2024 08/12/2022 Lipid Panel 11/18/2024 11/18/2023 eGFR 11/24/2024 11/24/2023, 0203/2024, 11/23/2023, Additional history exists Fall Risk Assessment 11/25/2024 11/25/2023 Medical Devices Implanted Type Area Embroidery Worker Device Identifier Shelf Expiration Date Model / Serial / Lot Bard Peripheral Vascular Kemi Jugular Venal Cava Filter [id number] - [id number] Implanted:Qty: 1 on 11/12/2023 at [facility] [employer] 09/16/2026 [id number] / / [id number] Allosource Canpac Nonpurge Frozen Graft 25cc Bone [id number] - [id number] Implanted:Qty: 1 on 11/18/2023 by Doron Valdivia MD at [facility] N/A: Spine Cervical Allosource 09/02/2028 [id number] / / [id number] Depuy Synthes Spine Screw Spinal Posterior Cervical Polyaxial Solid Symphony 3.5x14mm [id number] - [id number] Implanted:Qty: 1 on 11/18/2023 by Doron Valdivia MD at [facility] N/A: Spine Cervical Depuy Synthes Spine [id number] / / Depuy Synthes Spine Screw Spinal Set Posterior Cervical Solid Symphony Titanium [id number] - [id number] Implanted:Qty: 8 on 11/18/2023 by Doron Valdivia MD at [facility] N/A: Spine Cervical Depuy Synthes Spine [id number] / / Depuy Synthes Spine Chay Spinal Pre Lordotic Pre Cut Symphony 4.0x60mm Titanium [id number] - [id number] Implanted:Qty: 2 on 11/18/2023 by Doron Valdivia MD at [facility] N/A: Spine Cervical Depuy Synthes Spine [id number] / / Depuy Synthes Spine Screw Spinal Posterior Cervical Polyaxial Solid Symphony 3.5x16mm [id number] - [id number] Implanted:Qty: 5 on 11/18/2023 by Doron Valdivia MD at [facility] N/A: Spine Cervical Depuy Synthes Spine [id number] / / Depuy Spine Screw Bone 4.0 Cannulated Red Cfx 5.5x28mm [id number] - [id number] Implanted:Qty: 2 on 11/18/2023 by Doron Valdivia MD at [facility] N/A: Spine Cervical Depuy Spine [id number] / / Procedures Procedure Name Priority Date/Time Associated Diagnosis Comments EGFR Routine 11/24/2023 11:12 PM COUNTY ADMINISTRATOR LIPID PANEL STAT 11/18/2023 6:39 PM COUNTY ADMINISTRATOR POCT HEMOGLOBIN A1C Routine 10/27/2023 4 :53 PM COUNTY ADMINISTRATOR from Last 3 Months or Most Recently Relevant to Health Maintenance Results * eGFR (11/24/2023 11:12 PM COUNTY ADMINISTRATOR) eGFR >90 >=60 mL/min/1. 73 m2 [facility] Comment: Interpretive Data Reference Interval Normal >/= [...] of Race in Diagnosing Kidney Disease, JASN 2020). The CKD-EPI equation should not be used for patients with unstable renal function and has not been validated in children and those over 70. Current interpretive data was last reviewed 2021. Blood 11/24/2023 11:1 2 PM COUNTY ADMINISTRATOR 11/25/2023 1:18 AM COUNTY ADMINISTRATOR us Alphonse Butler NP LAB BLOOD ORDERABLES Fi nal Result [facility] Department [place] [address] * (ABNORMAL) Lipid panel (11/18/2023 6:39 PM COUNTY ADMINISTRATOR) Cholesterol 222(H) 30 - 199 mg/dL [facility] Comment: Interpretive Data Ages < or = [...] revised on 2018. Triglycerides 208(H) <=149 mg/dL [facility] Comment: Interpretive Data Ages < or [...] revised on 2018. HDL 40 >=40 mg/dL [facility] Comment: Interpretive Data Ages < or [...] on 2018. LDL, calculated 140(H) <=129 mg/dL [facility] Comment: Interpretive Data Ages < or [...] revised on 2018. Non-HDL Cholesterol 182 mg/dL [facility] Comment: Interpretive Data Ages < or [...] last revised on 2018. Chol/HDL ratio 6 [facility] Blood 11/18/2023 6:39 PM COUNTY ADMINISTRATOR 11/18/2023 6:53 PM COUNTY ADMINISTRATOR Narrative [facility] - 11/19/2023 12:00 AM COUNTY ADMINISTRATOR Reflex Doron Valdivia MD LAB BLOOD ORDERABLES Final Result Performing Organization Address [facility] Co de Phone Number [facility] [address] * (ABNORMAL) POCT hemoglobin A1c (10/27/2023 4:53 PM COUNTY ADMINISTRATOR) [facility] Hgb A1C, POC 7.1(H) 4.0 - 5.6 % [facility] Est Average Gluc POC 157 mg/dL [facility] Comment: The ADA recommends reporting an estimated Average Glucose (eAG) with all Hemoglobin A1c results using the equation derived from a study of 507 normal and diabetic adults. Minority populations were underrepresented and children were not included. (Diabetes Care 31:3566-4815, 2008). The eAG is not equivalent to a fasting glucose. Blood 10/27/2023 4:53 PM COUNTY ADMINISTRATOR 10/27/2023 4:53 PM COUNTY ADMINISTRATOR Doron Valdivia MD POINT OF CARE TEST ORDERAB LES Final Result Performing Organization Address [facility] Co de Phone Number [facility] [place] [address] from Last 3 Months or Most Recently Relevant to Health Maintenance Insurance [address] [place] [id number] [facility] Advance Directives For more information, please contact: [phone] Documents on File Type Date Recorded Patient Inspection Clerk Expl anation ADVANCE DIRECTIVE 11/18/2023 11:28 AM Power of Social Welfare Administrator-Medical * Full Code (Latest Code Status on File) Date Activated Date Inactivated Comments 11/18/2023 8:07 PM 11/25/2023 10:42 PM * Full Code Date Activated Date Inactivated Comments 11/11/2023 3:44 PM 11/12/2023 3:56 PM Care Teams Business Office Representative Relationship Specialty Start Date End Date Avi Neves MD [address] [place] [id number] PCP - General Family Medicine 10/20/23
[2025-03-08 05:34] VITALS: BP 158/85; PULSE 72; RESP 18; TEMP 36.4; O2SAT 100
[2025-03-08 05:53] VITALS: BP 195/109; PULSE 71; RESP 18; O2SAT 100
[2025-03-08 07:21] VITALS: BP 187/61; PULSE 73; RESP 17; O2SAT 100
[2025-03-08] MEDS: HYDROmorphone HCL INJ (*CRX) 2 MG/ML VIAL 1 MG IM (07:26)
--- OUTSIDE RECORDS SUMMARY | 2025-03-08 07:26 | XMS_ITS | Clinical Summary ---
Author Organization [place] [address] [facility] Address [facility]ly [facility] [place] [address] Care Team Providers Care Systems Requirements Planner Name Role Phone Avi Neves MD Primary [...] total) by mouth every morning 4 Active sm-oae-M-glutam ob-zjexac-lu363 1,000-50 mg tablet, effervescentInd ications:Supple ment Take 1 tablet by mouth nightly Active wynuazqk-zrc-gg ondroit-vit D3 750 mg-125 mg -600 mg [...] Smokeless Tobacco: Never Tobacco Cessation:Counseling Given: No [facility] Utilities Answer Date Recorded In the past 12 months has [employer], gas, oil, or water [employer] threatened to shut off services in your [...] week 11/19/2023 How often do you attend [facility] or yazidism services? More than 4 times per year 11/19/2023 Do you belong to any clubs o r organizations such as restorationism groups, unions, fraternal or athletic groups, or [...] place to sleep or slept in a longterm (including now)? No 11/19/2023 Personal Safety Answer [...] 36.4 C (97.6 F) 12/17/2023 7:04 PM DELIVERY DRIVER ASSISTANT Respiratory Rate 28 12/17/2023 11:30 PM DELIVERY DRIVER ASSISTANT Oxygen Saturation 100% 12/17/2023 11:30 PM DELIVERY DRIVER ASSISTANT Inhaled Oxygen Concentration - - Weight 85.3 [...] 11/25/2024 11/25/2023 Medical Devices Implanted Type Area Assistant Credit Manager Device Identifier Shelf Expiration Date Model / Serial / Lot Bard Peripheral Vascular Kemi Jugular Venal Cava Filter [id number] - [id number] Implanted:Qty: 1 on 11/12/[address] [facility] Bard Peripheral Vascular 09/16/2026 [id number] / / [id number] Allosource Canpac Nonpurge Frozen Graft 25cc Bone [id number] - [id number] Implanted:Qty: 1 on 11/18/2023 by Doron Valdivia MD at [facility] N/A: Spine Cervical Allosource 09/02/2028 [id number] / / [id number] Depuy Synthes Spine Screw Spinal Posterior Cervical Polyaxial Solid Symphony 3.5x14mm [id number] - [id number] Implanted:Qty: 1 on 11/18/2023 by Doron Valdivia MD at [facility] N/A: Spine Cervical Depuy Synthes Spine [id number] / / Depuy Synthes Spine Screw Spinal Set Posterior Cervical Solid Symphony Titanium [id number] - [id number] Implanted:Qty: 8 on 11/18/2023 by Doron Valdivia MD at [facility] N/A: Spine Cervical Depuy Synthes Spine [id number] / / Depuy Synthes Spine Chay Spinal Pre Lordotic Pre Cut Symphony 4.0x60mm Titanium [id number] - [id number] Implanted:Qty: 2 on 11/18/2023 by Doron Valdivia MD at [facility] N/A: Spine Cervical Depuy Synthes Spine [id number] / / Depuy Synthes Spine Screw Spinal Posterior Cervical Polyaxial Solid Symphony 3.5x16mm [id number] - [id number] Implanted:Qty: 5 on 11/18/2023 by Doron Valdivia MD at [facility] N/A: Spine Cervical Depuy Synthes Spine [id number] / / Depuy Spine Screw Bone 4.0 Cannulated Red Cfx 5.5x28mm [id number] - [id number] Implanted:Qty: 2 on 11/18/2023 by Doron Valdivia MD at [facility] N/A: Spine Cervical Depuy Spine [id number] / / Procedures Procedure Name Priority Date/Time Associated Diagnosis Comments EGFR Routine 11/24/2023 11:12 PM DELIVERY DRIVER ASSISTANT LIPID PANEL STAT 11/18/2023 6:39 PM DELIVERY DRIVER ASSISTANT POCT HEMOGLOBIN A1C Routine 10/27/2023 4 :53 PM DELIVERY DRIVER ASSISTANT from Last 3 Months or Most Recently Relevant to Health Maintenance Results * eGFR (11/24/2023 11:12 PM DELIVERY DRIVER ASSISTANT) eGFR >90 >=60 mL/min/1. 73 m2 K[facility] [...] reviewed 2021. Blood 11/24/2023 11:1 2 PM DELIVERY DRIVER ASSISTANT 11/25/2023 1:18 AM DELIVERY DRIVER ASSISTANT us Alphonse Butler NP LAB BLOOD ORDERABLES Fi nal Result [facility] FLORES [facility] Department [place] [address] * (ABNORMAL) Lipid panel (11/18/2023 6:39 PM DELIVERY DRIVER ASSISTANT) Cholesterol 222(H) 30 - 199 mg/dL KAVEH [...] revised on 2018. Triglycerides 208(H) <=149 mg/dL [facility] Comment: Interpretive Data Ages < or = [...] revised on 2018. HDL 40 >=40 mg/dL [facility] Comment: Interpretive Data Ages < or = [...] on 2018. LDL, calculated 140(H) <=129 mg/dL [facility] Comment: Interpretive Data Ages < or = [...] revised on 2018. Non-HDL Cholesterol 182 mg/dL [facility] Comment: Interpretive Data Ages < or = [...] last revised on 2018. Chol/HDL ratio 6 [facility] Blood 11/18/2023 6:39 PM DELIVERY DRIVER ASSISTANT 11/18/2023 6:53 PM DELIVERY DRIVER ASSISTANT Narrative [facility] - 11/19/2023 12:00 AM DELIVERY DRIVER ASSISTANT Reflex Doron Valdivia MD LAB BLOOD ORDERABLES Final Result Performing Organization Address [facility] Co de Phone Number [facility] [place] [place] [address] * (ABNORMAL) POCT hemoglobin A1c (10/27/2023 4:53 PM DELIVERY DRIVER ASSISTANT) [facility] Hgb A1C, POC 7.1(H) 4.0 - 5.6 % [facility] Est Average Gluc POC 157 mg/dL [facility] Comment: The ADA recommends reporting an estimated Average Glucose (eAG) with all Hemoglobin A1c results using the equation derived from a study of 507 normal and diabetic adults. Minority populations were underrepresented and children were not included. (Diabetes Care 31:3399-5535, 2008). The eAG is not equivalent to a fasting glucose. Blood 10/27/2023 4:53 PM DELIVERY DRIVER ASSISTANT 10/27/2023 4:53 PM DELIVERY DRIVER ASSISTANT Doron Valdivia MD POINT OF CARE TEST ORDERAB LES Final Result Performing Organization Address [facility] Co de Phone Number [facility] [place] [address] from Last 3 Months or Most Recently Relevant to Health Maintenance Insurance [address] [place] [id number] [facility] Advance Directives For more information, please contact: [phone] Documents on File Type Date Recorded Patient Building Consultant Expl anation ADVANCE DIRECTIVE 11/18/2023 11:28 AM Power of Health And Safety Tech-Medical * Full Code (Latest Code Status on File) Date Activated Date Inactivated Comments 11/18/2023 8:07 PM 11/25/2023 10:42 PM * Full Code Date Activated Date Inactivated Comments 11/11/2023 3:44 PM 11/12/2023 3:56 PM Care Teams Systems Requirements Planner Relationship Specialty Start Date End Date Avi Neves MD [address] [place] [id number] PCP - General Family Medicine 10/20/23
--- OUTSIDE RECORDS SUMMARY | 2025-03-08 07:26 | XMS_ITS | Referral Summary ---
Author Organization [place] [address] [facility] Address [facility] [place] [address] Care Team Providers Care Franchise Field Consultant Name Role Phone Avi Neves MD Primary [...] total) by mouth every morning 4 Active xh-kxz-U-glutam vp-elujrw-lk819 1,000-50 mg tablet, effervescentInd ications:Supple ment Take 1 tablet by mouth nightly Active aorvmatr-miu-jg ondroit-vit D3 750 mg-125 mg -600 mg [...] Smokeless Tobacco: Never Tobacco Cessation:Counseling Given: No [facility] Utilities Answer Date Recorded In the past 12 months has th e [employer], gas, oil, or water company threatened to [...] week 11/19/2023 How often do you attend [facility] or methodist services? More than 4 times per year 11/19/2023 Do you belong to any clubs o r organizations such as sabianism groups, unions, fraternal or athletic groups, or [...] place to sleep or slept in a correction (including now)? No 11/19/2023 Personal Safety Answer [...] 36.4 C (97.6 F) 12/17/2023 7:04 PM DIRECTOR INDEPENDENT Respiratory Rate 28 12/17/2023 11:30 PM DIRECTOR INDEPENDENT Oxygen Saturation 100% 12/17/2023 11:30 PM DIRECTOR INDEPENDENT Inhaled Oxygen Concentration - - Weight 85.3 kg (188 lb) 08/16/2024 10:41 AM CDT Height 162.6 cm (5' 4 ) 08/16/2024 10:41 AM CDT Body Mass Index 32.27 08/16/2024 10:41 AM CDT Plan of Treatment Not on file Medical Devices Implanted Type Area Cad Programmer Device Identifier Shelf Expiration Date Model / Serial / Lot Bard Peripheral Vascular [place]ahan Jugular Venal Cava Filter [id number] - [id number] Implanted:Qty: 1 on 11/12/2023 at [facility] [employer] Peripheral Vascular 09/16/2026 [id number] / / [id number] Allosource Canpac Nonpurge Frozen Graft 25cc Bone [id number] - [id number] Implanted:Qty: 1 on 11/18/2023 by Doron Valdivia MD at [facility] N/A: Spine Cervical Allosource 09/02/2028 [id number] / / [id number] Depuy Synthes Spine Screw Spinal Posterior Cervical Polyaxial Solid Symphony 3.5x14mm [id number] - [id number] Implanted:Qty: 1 on 11/18/2023 by Doron Valdivia MD at [facility] N/A: Spine Cervical Depuy Synthes Spine [id number] / / Depuy Synthes Spine Screw Spinal Set Posterior Cervical Solid Symphony Titanium [id number] - [id number] Implanted:Qty: 8 on 11/18/2023 by Doron Valdivia MD at [facility] N/A: Spine Cervical Depuy Synthes Spine [id number] / / Depuy Synthes Spine Chay Spinal Pre Lordotic Pre Cut Symphony 4.0x60mm Titanium [id number] - [id number] Implanted:Qty: 2 on 11/18/2023 by Doron Valdivia MD at [facility] N/A: Spine Cervical Depuy Synthes Spine [id number] / / Depuy Synthes Spine Screw Spinal Posterior Cervical Polyaxial Solid Symphony 3.5x16mm [id number] - [id number] Implanted:Qty: 5 on 11/18/2023 by Doron Valdivia MD at [facility] N/A: Spine Cervical Depuy Synthes Spine [id number] / / Depuy Spine Screw Bone 4.0 Cannulated Red Cfx 5.5x28mm [id number] - [id number] Implanted:Qty: 2 on 11/18/2023 by Doron Valdivia MD at [facility] N/A: Spine Cervical Depuy Spine [id number] / / Procedures Procedure Name Priority Date/Time Associated Diagnosis Comments EGFR Routine 11/24/2023 11:12 PM DIRECTOR INDEPENDENT LIPID PANEL STAT 11/18/2023 6:39 PM DIRECTOR INDEPENDENT POCT HEMOGLOBIN A1C Routine 10/27/2023 4 :53 PM DIRECTOR INDEPENDENT from Last 3 Months or Most Recently Relevant to Health Maintenance Results * eGFR (11/24/2023 11:12 PM DIRECTOR INDEPENDENT) eGFR >90 >=60 mL/min/1. 73 m2 K[facility] [...] reviewed 2021. Blood 11/24/2023 11:1 2 PM DIRECTOR INDEPENDENT 11/25/2023 1:18 AM DIRECTOR INDEPENDENT us Alphonse Butler NP LAB BLOOD ORDERABLES Fi nal Result [facility] FLORES [facility] Department [place] [address] * (ABNORMAL) Lipid panel (11/18/2023 6:39 PM DIRECTOR INDEPENDENT) Cholesterol 222(H) 30 - 199 mg/dL [facility] Comment: Interpretive Data Ages < or = [...] revised on 2018. Triglycerides 208(H) <=149 mg/dL [facility] Comment: Interpretive Data Ages < or = [...] revised on 2018. HDL 40 >=40 mg/dL [facility] Comment: Interpretive Data Ages < or = [...] on 2018. LDL, calculated 140(H) <=129 mg/dL [facility] Comment: Interpretive Data Ages < or = [...] revised on 2018. Non-HDL Cholesterol 182 mg/dL [facility] Comment: Interpretive Data Ages < or = [...] last revised on 2018. Chol/HDL ratio 6 [facility] Blood 11/18/2023 6:39 PM DIRECTOR INDEPENDENT 11/18/2023 6:53 PM DIRECTOR INDEPENDENT Narrative [facility] - 11/19/2023 12:00 AM DIRECTOR INDEPENDENT Reflex Doron Valdivia MD LAB BLOOD ORDERABLES Final Result [facility] Department [place] [address] * (ABNORMAL) POCT hemoglobin A1c (10/27/2023 4:53 PM DIRECTOR INDEPENDENT) Hgb A1C, POC 7.1(H) 4.0 - 5.6 % [facility] Est Average Gluc POC 157 mg/dL [facility] Comment: The ADA recommends reporting an estimated Average Glucose (eAG) with all Hemoglobin A1c results using the equation derived from a study of 507 normal and diabetic adults. Minority populations were underrepresented and children were not included. (Diabetes Care 31:8059-0196, 2008). The eAG is not equivalent to a fasting glucose. Blood 10/27/2023 4:53 PM DIRECTOR INDEPENDENT 10/27/2023 4:53 PM DIRECTOR INDEPENDENT us Doron Valdivia MD POINT OF CARE TEST ORDERAB LES Final Result [facility] Department [place] [address] from Last 3 Months or Most Recently Relevant to Health Maintenance Insurance [facility] Advance Directives For more information, please contact: [phone] Documents on File Type Date Recorded Patient Cosmetology Professor Expl anation ADVANCE DIRECTIVE 11/18/2023 11:28 AM Power of Boring Mill Operator For Metal-Medical * Full Code (Latest Code Status on File) Date Activated Date Inactivated Comments 11/18/2023 8:07 PM 11/25/2023 10:42 PM * Full Code Date Activated Date Inactivated Comments 11/11/2023 3:44 PM 11/12/2023 3:56 PM Care Teams Franchise Field Consultant Relationship Specialty Start Date End Date Avi Neves MD [address] [place] [address] PCP - General Family Medicine 10/20/23
--- NOTE | 2025-03-08 08:30 | ED.LOWEXIN ---
HPI - Extremity Injury (Lower) General Chief Complaint: Extremity Injury, Lower Stated Complaint: left hip/leg pain Time Seen by Provider: 03/08/25 07:03 History of Present Illness HPI Narrative: Pt presents with severe left hip pain this morning. Pt says she was getting out of bed and felt pop in left hip followed by severe pain. Pt denies falling or injuring hip. Related Data Home Medications ?Medication ?Instructions ?Recorded ?Confirmed ?Last Taken ?Type glucosamine 750 mg-msm 125 750 tablet PO HS 11/25/23 09/15/24 Unknown History mg-chondroitin 600 mg-D3 1,000 unit tablet aspirin 81 mg tablet,delayed 81 mg PO DAILY 09/15/24 09/15/24 Unknown History release krill oil 500 mg capsule mg PO 09/15/24 09/15/24 Unknown History Allergies Allergy/AdvReac Type Severity Reaction Status Date / Time metformin Allergy Diarrhea Verified 03/08/25 05:26 semaglutide (From Rybelsus) Allergy Headache Verified 03/08/25 05:26 Review of Systems Review of Systems: All systems reviewed & are unremarkable except as noted in HPI and below PMFSH Past Medical History Medical History History of DVT (deep vein thrombosis) (2010) Surgical History Surgical History History of cataract surgery (2019) Social History Social History Smoking status: Never smoker Lack of Transportation: No Lack of Food: Never True Current Housing: I Have Housing Concerned About Future Housing: No Difficulty Paying Gas/Electric Bills: No Difficulty Paying for Meds: No Currently Unemployed: No Education: High School Diploma/GED Difficulty w/ Childcare or Family Care: No Spiritual care concerns: No Exam Const: General: healthy appearing and no acute distress Nutritional Appearance: well nourished Orientation/consciousness: patient oriented x3 Limitations: no limitations HENMT: Head: normal to inspection Eyes: Pupils: Equal, round and reactive pupils present EOM: EOMs intact bilaterally Neck: Neck: normal visual inspection, no lymphadenopathy and no meningeal signs Resp: Effort & Inspection: normal respiratory effort Auscultation: clear to auscultation bilaterally Cardio: Rate: regular rate Rhythm: regular rhythm GI: GI Palp: Yes Soft to palpation and No Tenderness to palpation present (GI) Auscultation: normal bowel sounds Back/Spine/Pelvis: Back: no CVA tenderness Skin: General skin exam: normal color Rashes: no rashes Neuro: General: patient oriented x3, moves all extremities and no focal motor deficits Speech: normal speech Extrem: General: no clubbing, cyanosis or edema Other: tender below left greater trochanter no instability Psych: Mental Status: mental status grossly normal Affect: normal affect Attitude: cooperative Course Vital Signs Vital signs: Vital Signs Temperature 97.6 F 03/08/25 05:34 Pulse Rate 72 03/08/25 05:34 Respiratory Rate 18 03/08/25 05:34 Blood Pressure 158/85 H 03/08/25 05:34 Pulse Oximetry 100 03/08/25 05:34 Oxygen Delivery Room Air 03/08/25 05:34 Temperature 97.6 F 03/08/25 05:34 Pulse Rate 78 03/08/25 14:29 Respiratory Rate 18 03/08/25 14:29 Blood Pressure 150/53 H 03/08/25 14:29 Pulse Oximetry 97 03/08/25 14:29 Oxygen Delivery Room Air 03/08/25 12:35 MDM - Extremity Injury (Lower) MDM Narrative Medical decision making narrative: Pt presents with left hip pain after rolling over in bed getting up and feeling pop. Will start with x rays. Pt given dialudid IM and x rays neg. Due to degree of pain will get CT hip to be safe. ct unremarkable. Pt not able to get up or move hip. will have PT come evaluate. PT able to get pt up in chair and pt more comfortable now and willing to go home on pain meds with home PT. Discharge Plan Discharge Clinical Impression: Acute pain of left hip Patient Disposition: Home Condition: Improved Instructions: Antibiotic Form, Hip Pain (ED) Patient Language: Botswanan Prescriptions: New hydrocodone-acetaminophen 5-325 mg tablet 1 tablet PO Q8H PRN (Reason: pain) Qty: 14 0RF No Action krill oil 500 mg capsule PO aspirin 81 mg tablet,delayed release (DR/EC) 81 mg PO DAILY trazodone 50 mg tablet 50 mg PO HS Qty: 30 4RF celecoxib 200 mg capsule 200 mg PO DAILY Qty: 30 2RF metoprolol tartrate 25 mg tablet See Rx Instructions .ROUTE .COMPLEX Qty: 74 4RF Dose Instruction: TAKE 1 TABLET BY MOUTH EVERY 12 HOURS Rx Instructions: TAKE 1 TABLET BY MOUTH EVERY 12 HOURS hydralazine 25 mg tablet See Rx Instructions .ROUTE .COMPLEX Qty: 180 2RF Dose Instruction: TAKE 1 TABLET BY MOUTH TWICE A DAY Rx Instructions: TAKE 1 TABLET BY MOUTH TWICE A DAY amlodipine 10 mg tablet See Rx Instructions .ROUTE .COMPLEX Qty: 90 2RF Dose Instruction: TAKE 1 TABLET BY MOUTH EVERY DAY IN THE MORNING Rx Instructions: TAKE 1 TABLET BY MOUTH EVERY DAY IN THE MORNING glimepiride 2 mg tablet 2 mg PO DAILY Qty: 90 2RF Tradjenta 5 mg tablet 5 mg PO QAM Qty: 90 2RF Eliquis 5 mg tablet 5 mg PO BID Qty: 60 4RF bneljkdj-lhq-apfzocodv-vit D3 750 mg-125 mg -600 mg Tablet 750 tablet PO Follow-up/Referrals: Avi Neves MD [Primary Care Provider] -
[2025-03-08 08:45] VITALS: BP 180/68; PULSE 63; RESP 20; O2SAT 97
[2025-03-08 09:45] VITALS: BP 183/57; PULSE 71; RESP 18; O2SAT 99
--- NOTE | 2025-03-08 12:57 | PC.NURSE ---
PT and OT at bedside to evaluate.
--- NOTE | 2025-03-08 13:55 | PCCCNOTE ---
Spoke with PT/OT and heard the pt's decision not to go to facility for therapy. Stated she does have a PCP and will f/u after discharge. Noted she has had spinal surgery prior and was supposed to have it again however decided not to d/t having TIA's after the last procedure and has not followed up since. Gave [facility] resources for for an assessment for extra help in the home. Denies having any further CM needs at this time. Report shared with ED provider.-flavia
[2025-03-08 14:29] VITALS: BP 150/53; PULSE 78; RESP 18; O2SAT 97
== END 2025-03-08 14:30 | disposition home or self-care (01) ==
PROVIDERS: Emergency Provider Emergency Medicine; PCP Family Medicine Adolescent Medicine
DX: M25.552 Pain in left hip (principal); Z86.718 Personal history of other venous thrombosis and embolism; Z98.49 Cataract extraction status, unspecified eye
CPT/HCPCS: 73502; 73700; 96372; 97161; 97165; 99284; J1171

== ENCOUNTER 2025-09-04 16:29 | Outpatient (CLI) | payer OTHER, SELFPAY ==
--- NOTE | ~2025-09-04 | XR_ITS ---
EXAMINATION: XR hip RT min 2V DATE: 09/04/2025 16:56 INDICATION: Right hip pain TECHNIQUE: Anteroposterior and cross-table lateral views of the right hip were obtained. COMPARISON: None. FINDINGS: Bone alignment is normal. No fractures. Severe osteoarthritis at the right hip. Mild osteoarthritis at the right sacroiliac joint. Moderate to severe lumbar spondylosis. Coarse calcifications projecting over the central pelvis likely related to a degenerated uterine fibroid. Soft tissues are otherwise unremarkable. IMPRESSION: 1. Severe right hip osteoarthritis. 2. Moderate to severe lumbar spondylosis. Reviewed, dictated and finalized at location A. OTECHNOLOGIST SUPERVISOR
== END 2025-09-04 16:30 | disposition home or self-care (01) ==
PROVIDERS: PCP Family Medicine Adolescent Medicine
DX: M16.11 Unilateral primary osteoarthritis, right hip (principal); M47.896 Other spondylosis, lumbar region
CPT/HCPCS: 73502